=== PATIENT | male | born 1975 | race Caucasian/White ===

== ENCOUNTER → 2018-09-10 13:38 | Outpatient (CLI) | payer OTHER, SELFPAY ==
[2018-09-10 11:27] VITALS: BMI 29.9
== END ==
PROVIDERS: Referring Provider Physician Assistant; Visit Provider Physician Assistant
DX: J02.9 Acute pharyngitis, unspecified (principal)
CPT/HCPCS: 87081

== ENCOUNTER 2019-10-15 09:13 | Observation (INO) | payer OTHER, SELFPAY ==
[2018-10-01 15:53] VITALS: BMI 29.9
[2019-10-15 09:13] VITALS: BP 189/99; PULSE 56; RESP 18; TEMP 36.1; O2SAT 100; BMI 29.4
--- NOTE | 2019-10-15 09:30 | CT_ITS ---
STUDY: CT ABDOMEN AND PELVIS WITHOUT CONTRAST REASON FOR EXAM: Male, 44 years old. LOW BACK PAIN, LT SIDE RADIATION DOSAGE (If Supplied By Facility): CTDIvol = ( 18.44 ) mGy, DLP = ( 972.06 ) mGycm TECHNIQUE: Transaxial images were obtained from the dome of the diaphragm to the symphysis pubis without oral contrast, and without intravenous contrast. Sagittal and coronal images were reconstructed. Individualized dose optimization techniques were used for this CT. COMPARISON: None. FINDINGS: Minimal degree of bibasilar dependent atelectasis. The visualized portions of the heart are within normal limits. Normal liver. Normal gallbladder and extrahepatic biliary system. Normal spleen. Normal pancreas. Normal bilateral adrenal glands. There is a 2 mm nonobstructive calculus in the upper midportion of the right kidney. Mild degree of left hydronephrosis due to a 4.2 mm calculus in the proximal portion of the left ureter just distal to the ureteral pelvic junction. There is also evidence of a 2 mm calculus in the lower pole calyx of the left kidney. Minimal degree of left perinephric stranding. There is a small hiatal hernia. Normal small intestine. Normal colon. The appendix is visualized and appears normal. Normal abdominal aorta. Normal inferior vena cava. Normal retroperitoneum. Normal urinary bladder. There is calcification of the vas deferens bilaterally. Normal abdominal wall. There are minimal degenerative changes of the visualized lumbar spine. Straightening of the normal lumbar lordosis. CT/Abdomen/Pelvis without Cont IMPRESSION: 4.2 mm calculus in the proximal portion of the left ureter just distal to the left ureteropelvic junction causing mild degree of left hydronephrosis. Small bilateral nonobstructive intrarenal calculi. Electronically Signed: Juan A Miranda, at 10:22 EDT , Service support ,
[2019-10-15] MEDS: 0.9% Normal Saline 1,000 ML 125 ML IV ×3 (09:52→22:53)
[2019-10-15] MEDS: Ketorolac 30 MG/ML Syringe IV (09:53)
[2019-10-15] MEDS: HYDROmorphone 1 MG/ML Syringe IV (09:53)
[2019-10-15] MEDS: Ondansetron 4 MG/2 ML Vial IV ×2 (09:53→15:34)
[2019-10-15 09:56] LABS: Absolute Lymphocyte Count 1.44 X10^3/uL (0.83-4.51); Absolute Neutrophil Count 6.4 X10^3/uL (2.0-7.7); Basophil# 0.03 X10^3/uL; Basophil% 0.4 % (0-1); Eosinophil# 0.12 X10^3/uL; Eosinophils% 1.4 % (0-5); Hematocrit 44.5 % (40-54); Hemoglobin 15.1 g/dL (13.0-16.5); Lymphocyte # 1.44 X10^3/ul (4.0); Lymphocyte % 16.9 % (19-41); Mean Corp Hgb Conc 33.9 g/dL (32-36); Mean Corpuscular Hgb 29.3 pg (27.0-32.0); Mean Corpuscular Volume 86.4 fL (80-94); Mean Platelet Vol. 11.8 fl (6.2-12.0); Monocyte# 0.43 X10^3/uL; Monocyte% 5.1 % (0-10); NRBC Flagged by Analyzer 0 % (0-5); Neutrophil # 6.44 X10^3/uL (2.7-7.7); Neutrophil % 75.6 % (47-70); Platelet Count 188 K/mm3 (150-450); RBC Distribution Width CV 11.8 % (11.6-14.6); RBC Distribution Width SD 37.3 fl (35.1-43.9); Red Blood Count 5.15 M/mm3 (4.6-6.2); White Blood Count 8.5 K/mm3 (4.4-11.0)
[2019-10-15 10:07] LABS: Anion Gap 3 (5-15); BUN 15 mg/dL (7-18); BUN/Creat Ratio 13.8 RATIO (10-20); Calcium,Total 9.2 mg/dL (8.5-10.1); Chloride 111 mmol/L (98-107); Creatinine, Serum 1.09 mg/dL (0.70-1.30); EST Glomerular Filtration Rate 79 mL/min (>60); Est Glom Filt Rate - Afr Amer 95 mL/min (>60); Estimated Creatinine Clearance 94.03 ml/min; Glucose 130 mg/dL (74-106); Potassium 4.8 mmol/L (3.5-5.1); Sodium Level 145 mmol/L (136-145)
--- NOTE | 2019-10-15 10:34 | ED.VISSUMM ---
- ER Visit Summary Date of Service: 10/15/19 Chief Complaint: [Left backslash flank pain] History of Present Illness: The patient is a 44 M [presents to the emergency department with pain in his left back that he initially had 2 nights ago that woke him up in the middle of the night and was severe to the left side. Patient states the pain lasted about half an hour then it resolved. Today while driving to work around 835 he started having more severe pain in his left back that radiates to the front of the abdomen. He denies any fever. He denies urinary symptoms. He denies any trauma to his back. He denies any pain on the legs or paresthesias. He denies change in bowel or bladder function. He is never had pain like this before. Patient rates the pain is very severe.] Physical Examination: [HEENT-PERRLA, EOMI. Cranial nerves II through XII grossly intact. TMs clear. Mucous membranes moist. No adenopathy. Cardiovascular-regular rate and rhythm without murmur or ectopy Lungs-clear to auscultation, chest wall stable without crepitus or subcu emphysema Abdomen-normoactive bowel sounds, soft. Patient has some tenderness over left lower quadrant with some guarding. There is no rebound, rigidity, or cranial signs. Back exam-patient does have CVA tenderness on exam on the left. No tenderness over the lumbar paraspinal musculature or thoracic or lumbar spine. He has negative straight leg raises. Deep tendon reflexes are plus out of 4 bilaterally at the patella Achilles. Patient has normal 5 extension bilaterally. Extremities-intact ?4, normal range of motion, normal pulses, atraumatic] Test Results: [CBC with differential obtained showed normal white count. Chemistries unremarkable. Urinalysis pending. CT scan of the flank showed a 4.2 mm stone at the left proximal ureter with mild hydronephrosis.] Emergency Department Course and Treatment: [Patient had an IV line established on arrival. Patient was medicated with Toradol, Dilaudid, and Zofran. Patient had good pain relief with that.] Treatment Plan: [We will wait for urine results and if no signs of infection patient will be given urine strainers and a prescription for Naprosyn, Zofran, and [place] for pain. He will be given urine strainers. Patient will be given referral to urology for follow-up. He will be advised to return if increasing pain, vomiting, fever, or condition should worsen anyway. At 4.2 mm I expect patient will be able to pass the stone on his own.] Disposition: [Discharged home in stable condition] Impression: [Ureteral lithiasis] This note was generated with [employer] dictation software. It may contain incorrect words, spelling, and punctuation that were not noted in review of the chart prior to signing ED Disposition - Plan for ED Patient: Referrals: Care Physician,No Primary [Primary Care Provider] -
--- NOTE | 2019-10-15 10:37 | ED.DEP ---
ED Disposition - Plan for ED Patient: Instructions: ED Renal Stone w Colic Prescriptions: Naproxen [Naprosyn] 500 mg PO BID PRN #20 tab Prescription Printed Hydrocodone Bitart/Apap 5-325 [[place] 5MG-325MG] 1 tab PO Q4H PRN PRN 2 Days #20 tab PRN Reason: Pain Prescription Printed Ondansetron [Zofran Odt] 4 mg PO Q8H PRN PRN #10 tab PRN Reason: Nausea Prescription Printed Referrals: Care Physician,No Primary [Primary Care Provider] - Shilo Carranza MD [STAFF PHYSICIAN] - 3-5 Days
--- NOTE | 2019-10-15 10:49 | CM.ED ---
Social Work Consult: No PCP Informant: Self Referral Met with patient in room. Introduced self as well as social studies department chair role. Patient agreeable to speaking with this social studies department chair. This social studies department chair broached topic of PCP for patient. Patient states to follow with doctors at [facility] at the [place] location and to not need any referral for a PCP. Patient states to not follow with one doctor but to see whichever doctor is open for when patient has a needed. This social studies department chair educated patient on value of having a PCP, one doctor to go to. Patient voicing understanding. Patient state plan/choice to continue with current plan of seeing whichever doctor is free at the [facility]. This social studies department chair broached topic of advanced care planning, patient denies having HCPOA/LW and decline information on this stating I know what it is, I need to get it done. Patient educated on social work being able to assist patient with Advanced Care Planning in the ED, patient decline preferring to work with patient burrer operator on these documents. Active support provided. Patient states no concerns in the community. Vanna VENTURA, BALJINDER
[2019-10-15 11:01] LABS: Mucous, Urine 0 SEEN /hpf (<or=2+)
[2019-10-15 11:08] LABS: Color, Urine Yellow (Yellow); Glucose, Dipstick Normal (Normal); Ketone-Dipstick Negative (Negative); Leukocyte Esterase-Dipstick 25 /ul (Negative); Nitrite-Dipstick Negative (Negative); Occult Blood-Urine 250 /ul (Negative); Protein-Dipstick 30 mg/dl (Negative); Urine Bilirubin Dipstick Negative (Negative); Urine Clarity Sl. Cloudy (Clear); Urine Urobilinogen Normal (Normal)
[2019-10-15 11:21] LABS: Red Blood Cells-Urine 25-50 SEEN /hpf (0-5); White Blood Cells 0-5 SEEN /hpf (0-5)
[2019-10-15 11:22] LABS: Bacteria 1+ /hpf (None Seen); Squamous Epithelial Cells - UA 0-5 SEEN /hpf (0-5)
--- NOTE | 2019-10-15 11:51 | NURSING ---
DR REBOLLAR IN ROOM
--- NOTE | 2019-10-15 12:10 | PCM.HP.STD ---
Problem List (1) Kidney stone on left side Status: Acute History of Present Illness Date of Admission: 10/15/19 Chief Complaint: obstructing stone left side The patient is a 44 year old male adminted with an obstructing stone on the left side with severe pain, also had some nausea vomiting. We offered the patient to go home or stay for treatment of his kidney stone he wishes to stay that this kidney stone treated will put him on the schedule for tomorrow for shockwave lithotripsy in the left side. Past Medical History Medical History: Medical History (Last Updated 09/10/18 @ 10:54 by Janice Spicer) Chest pain R07.9 Limb weakness R29.898 history of right shoulder dislocation Hypertension I10 Allergies No Known Allergies Allergy (Verified 10/15/19 09:16) Home Medications: Ambulatory Orders Medication Instructions Recorded benzonatate 200 mg capsule 200 mg PO TID PRN #20 cap 09/10/18 Hydrocodone Bitart/Apap 5-325 1 tab PO Q4H PRN PRN 2 Days #20 tab 10/15/19 [[place] 5MG-325MG] Naproxen [Naprosyn] 500 mg PO BID PRN #20 tab 10/15/19 Ondansetron [Zofran Odt] 4 mg PO Q8H PRN PRN #10 tab 10/15/19 Surgical History: no surgical history Smoking Status: Never smoker Review of Systems Constitutional: Denies: Chills, Fever, Weight Change HEENT: Denies: Head Aches, Sinus Congestion, Sinus Drainage Cardiovascular: Denies: Chest Pain, Palpitations Respiratory: Denies: Cough, Shortness of breath at rest, Sputum production Gastrointestinal: Denies: Abdominal Pain, Nausea, Vomiting Genitourinary: Denies: Dysuria Musculoskeletal: Denies: Joint Pain, Joint Tenderness Skin: Denies: Rash, Wounds Neurological: Denies: Numbness, Tingling, Focal weakness Psychiatric: Denies: Anxiety, Depression, Homicidal Ideations, Suicidal Ideations Hematologic/ Lymphatic: Denies: Easy Bruising, Easy Bleeding VTE Information - Inpt Only VTE Present on Admission: No Patient Problems: Active and Suspected Problems (Last Updated 09/10/18 @ 10:54 by Janice Spicer) Kidney stone on left side (Acute) - Physical Exam Vitals/I&O's: Vital Signs Temp Pulse Resp BP Pulse Ox 97 F L 56 L 18 189/99 H 100 10/15/19 09:13 10/15/19 09:13 10/15/19 09:13 10/15/19 09:13 10/15/19 09:13 Oxygen Delivery Method Room Air Weight: 95.708 kg Body Mass Index (BMI) 29.4 General: Alert, Oriented x3, Cooperative HEENT: Atraumatic, PERRLA, EOMI, Normocephalic Neck: Supple, No JVD, Negative Carotid Bruits Lungs: Clear to auscultation, Normal air movement Cardiovascular: Regular rate, No murmurs Abdomen: Bowel Sounds Present, Soft, Non Tender Extremities: No edema, Capillary Refill Less than 3 Seconds Skin: No rashes, No breakdown Musculoskeletal: No Tenderness to Palpation of Joints or Extremities Neurological: Cranial nerves II-XII grossly intact Psych/Mental Status: Normal Affect, Appropriate Laboratory Results 10/15/19 09:50: WBC 8.5, RBC 5.15, Hgb 15.1, Hct 44.5, MCV 86.4, MCH 29.3, MCHC 33.9, RDW Std Deviation 37.3, RDW Coeff of [place] 11.8, Plt Count 188, MPV 11.8, Immature Gran % (Auto) 0.600, Neut % (Auto) 75.6 H, Lymph % (Auto) 16.9 L, [place] % (Auto) 5.1, Eos % (Auto) 1.4, Baso % (Auto) 0.4, Absolute Neuts (auto) 6.4, Absolute Lymphs (auto) 1.44, Nucleated RBC % 0 10/15/19 09:50: Sodium 145, Potassium 4.8, Chloride 111 H, Carbon Dioxide 31.0, Anion Gap 3 L, BUN 15, Creatinine 1.09, Estim Creat Clear Calc 94.03, Est GFR (MDRD) Af Amer 95, Est GFR (MDRD) Non-Af 79, BUN/Creatinine Ratio 13.8, Glucose 130 H, Calcium 9.2 10/15/19 10:55: Urine Color Yellow, Urine Clarity Sl. Cloudy, Urine pH 7.0, Ur Specific [place] 1.010, Urine Protein 30 H, Urine Glucose (UA) Normal, Urine Ketones Negative, Urine Occult Blood 250 H, Urine Nitrite Negative, Urine Bilirubin Negative, Urine Urobilinogen Normal, Ur Leukocyte Esterase 25 H, Urine RBC 25-50 SEEN, Urine WBC 0-5 SEEN, Ur Squamous Epith Cells 0-5 SEEN, Urine Bacteria 1+, Urine Mucus 0 SEEN Current Medications Sodium Chloride () 1,000 mls @ 125 mls/hr IV .Q8H HAIR Last Admin: 10/15/19 09:52 Dose: 125 mls/hr Documented by: Assessment/Plan All Active Problems (Last Updated 09/10/18 @ 10:54 by Janice Spicer) Kidney stone on left side (Acute) Pharyngitis (Acute) Bronchitis (Acute) URI (upper respiratory infection) (Acute) admit for kidney stone and obstructing left proximal ureter, plan for left shockwave lithotripsy possible stent.
[2019-10-15 13:14] VITALS: BP 134/74; PULSE 77; RESP 14; RESP 16; TEMP 36.4; O2SAT 99
--- NOTE | 2019-10-15 13:31 | NURSING ---
306 clif kidney stone, intractable pain
[2019-10-15 14:12] VITALS: BMI 29.5
[2019-10-15 14:29] VITALS: BP 156/88; PULSE 58; RESP 18; TEMP 36.8; O2SAT 100
[2019-10-15] MEDS: Cefazolin 1 GM/50 ML BAG IV ×2 (15:25→21:06)
[2019-10-15] MEDS: Morphine 2 MG/ML Syringe 1 MG IV (15:29)
[2019-10-15] MEDS: Ketorolac 15 MG/ML Vial IV (18:26)
[2019-10-15 21:01] VITALS: BP 149/87; PULSE 69; RESP 18; TEMP 36.7; O2SAT 96
[2019-10-16] VITALS (11 sets, daily range): BP systolic 127–166; BP diastolic 74–91; PULSE 48–63; RESP 14–18; TEMP 36.1–36.8; O2SAT 95–100; BMI 29.5
--- NOTE | 2019-10-16 06:00 | EKG12_ITS ---
Test Reason : PRE OP Blood Pressure : / mmHG Vent. Rate : 048 BPM Atrial Rate : 048 BPM P-R Int : 168 ms QRS Dur : 088 ms QT Int : 462 ms P-R-T Axes : 007 -14 010 degrees QTc Int : 412 ms Sinus bradycardia Otherwise normal ECG No previous ECGs available Confirmed by MARLENE PEREZ ([id number]), editor index FRANK HERNANDEZ ([id number]) on 10/18/2019 10:41:41 AM Referred By: LISSETH Confirmed By:MARLENE PEREZ
[2019-10-16] MEDS: 0.9% Normal Saline 1,000 ML 125 ML IV ×2 (06:32→13:30)
[2019-10-16] MEDS: Morphine 2 MG/ML Syringe 1 MG IV (08:35)
[2019-10-16] MEDS: Ketorolac 15 MG/ML Vial IV (08:56)
--- NOTE | 2019-10-16 11:03 | PCA ---
pt off floor
[2019-10-16] MEDS: Pantoprazole Sodium 40 MG Tablet PO (11:20)
--- NOTE | 2019-10-16 12:40 | PCM.DC.URO ---
Discharge Diet: Light diet - advance as tolerated Discharge Activity: Return to Normal Activity, May not drive while taking narcotic pain medications. Call your doctor if your incision/area has: Sudden Increased Bleeding Instructions: ED Renal Stone w Colic Allergies/Adverse Reactions: Allergies No Known Allergies Allergy (Verified 10/15/19 09:16) Medications to take at Discharge Hydrocodone/Acetaminophen [[place] 5-325 Tablet] 1 each PO Q4H PRN PRN 5 Days #20 tablet 10/16/19 The following prescriptions were given: Hydrocodone/Acetaminophen [[place] 5-325 Tablet] 1 each PO Q4H PRN PRN 5 Days #20 tablet PRN Reason: Pain Score 1-10/10 Transmission Status: Received by [facility] Primary Care Physician: Shilo Carranza MD [STAFF PHYSICIAN] - 3-5 Days Care Physician,No Primary [Primary Care Provider] - Test Results: Test results from this visit will be discussed in further detail at your follow-up appointment, if applicable. Please Follow Up With: Shilo Carranza MD When: in 2 weeks, please call to make an appointment.
--- NOTE | 2019-10-16 13:28 | PCM.OPRPT ---
Problem List (1) Kidney stone on left side Status: Acute Report of Operation Date of Procedure: 10/16/19 Pre-Operative Diagnosis: Left ureteral calculi Post-Operative Diagnosis: Same Surgery/Procedure Performed:: Left extracorporeal shockwave lithotripsy Description of Surgical Findings:: 44-year-old male presented to the hospital with obstructing stone in the proximal mid left ureter he was taken back to the operating room after smooth induction of general anesthesia using fluoroscopy we identified the stone we then placed the stone the F2 focal point of the lithotripter and the stone was treated with 4000 and shockwave lithotripsies. We went at a rate of 90/min kilovolts were from 7 to 9 kV at the end of the treatment of stone or change significantly and we decided not to leave a stent in the patient will be discharged home with pain medicine and expectation to pass the fragments. He will follow-up in the office a few weeks with a KUB Type of Anesthesia:: General Drains: none - Admit VTE Documentation VTE Present on Admission: No VTE Mechan Device Prophylaxis: SCD's
== END 2019-10-16 17:25 | disposition home or self-care (01) ==
LOC: ED 12:12 → MS3 12:36
PROVIDERS: Admitting Provider Urology; Emergency Provider Emergency Medicine; Visit Provider Urology
PROC: (CPT 50590; principal; 2019-10-16 11:25)
DX: N13.2 Hydronephrosis with renal and ureteral calculous obstruction (principal); I10 Essential (primary) hypertension; R00.1 Bradycardia, unspecified
CPT/HCPCS: 50590; 74176; 80048; 81001; 85025; 93005; 94799; 96361; 96365; 96366; 96375; 96376; 99218; 99284; J7030; G0378; J2405

== ENCOUNTER → 2019-10-29 15:24 | Outpatient (CLI) | payer OTHER, SELFPAY ==
[2019-10-16 09:22] VITALS: BMI 29.5
--- NOTE | 2019-10-29 15:40 | RAD_ITS ---
STUDY: X-RAY - ABDOMEN/PELVIS REASON FOR EXAM: Male, 44 years old. History of left-sided kidney stones. Follow-up. TECHNIQUE: Two AP supine views of the abdomen and pelvis. COMPARISON: CT of the abdomen and pelvis, 10/15/2019. FINDINGS: Normal visualized lung bases. There is an unremarkable bowel gas pattern. There is no demonstrated free abdominal air. The visualized liver, spleen and kidneys are grossly normal in size and morphology. There is nonvisualization of the small stone lower pole left kidney is a left ureteral calculus when compared to the prior study. Normal soft tissue structures. Normal visualized osseous structures. RAD/Abdomen Single View IMPRESSION: Nonvisualization of the left renal calculi noted on CT scan. Electronically Signed: Aguilar Camarena DO at 21:23 EDT Tel [phone], Service support ,
[2019-10-29 17:40] LABS: Anion Gap 3 (5-15); BUN 16 mg/dL (7-18); Calcium,Total 8.7 mg/dL (8.5-10.1); Chloride 108 mmol/L (98-107); Creatinine, Serum 0.94 mg/dL (0.70-1.30); EST Glomerular Filtration Rate 93 mL/min (>60); Est Glom Filt Rate - Afr Amer 113 mL/min (>60); Glucose 98 mg/dL (74-106); Potassium 3.7 mmol/L (3.5-5.1); Sodium Level 141 mmol/L (136-145)
== END ==
PROVIDERS: Referring Provider Urology; Visit Provider Urology
DX: N20.0 Calculus of kidney (principal)
CPT/HCPCS: 36415; 74018; 80048